=== PATIENT | female | born 1980 | race Caucasian/White ===

== ENCOUNTER 2016-07-14 22:39 | Emergency (ER) | payer BC ==
--- NOTE | 2016-07-15 02:38 | ED MAR SUMMARY ---
..... Medication Administration Record [facility] [address] [place], [place] [id number] Patient: TWILA HOLMAN Jerrica Visit ID: [id number] 36y, F Weight: 68.0 kg Height/Length: 65 in BMI: 25 ALLERGIES: None
--- NOTE | 2016-07-15 02:38 | ED NURSING NOTES ---
Clinical Report - Nurses [facility] [place] [address] 07/14/2016 22:39 Patient: TWILA HOLMAN TRIAGE Triage time 23:11. Acuity: LEVEL 4. Chief Complaint: (fills that something forgin object moving around in her arm). 23:15. --23:15 Jeanette Shafer R.N. 23:07 07/14/16. BP: 115/83 taken on the left arm, via an automated monitor, while sitting. HR: 95 (regular, normal rate and strong). RR: 20 (regular, unlabored and normal). O2 saturation: 95% on room air. Temp: 97.5 F (oral). Pain level now: 07/04. --23:15 Jeanette Shafer R.N. Weight: 68 kg stated. Height/Length: 65 inches. BMI: 25. --23:10 Jeanette Shafer R.N. Medications None. --23:14 Jeanette Shafer R.N. Allergies None. --23:14 Jeanette Shafer R.N. History Arrived by private vehicle. Historian: patient. Unaccompanied. Onset. (2 months). PAST MEDICAL HX: Immunizations: up-to-date. SOCIAL HX: Current every day smoker, start date 1989. Occasional alcohol use. No drug use. FALL RISK ASSESSMENT: Fall risk assessment completed. No fall risk identified. NUTRITIONAL RISK ASSESSMENT: The nutritional risk assessment revealed no deficiencies. FUNCTIONAL ASSESSMENT: Functional assessment: no impairments noted. LEARNING NEEDS ASSESSMENT: The learning needs assessment revealed no barriers. SKIN INTEGRITY ASSESSMENT: Skin integrity risk assessment completed. No skin integrity risk identified. --23:15 Jeanette Shafer R.N. DISPOSITION / DISCHARGE 00:30. The patient left the Emergency Department without being seen by a physician. She notified the ED staff prior to leaving the department and stated is leaving the ED due to personal reasons. Notified the charge nurse of patient departure. She left the Emergency Department ambulatory. --02:38 Ludy Will R.N. Locked/Released at 07/15/2016 2:38 by Ludy Will R.N.
--- NOTE | 2016-07-15 02:38 | ED NURSING NOTES ---
Clinical Report - Nurses [facility] [place] [address] [place] [address] 07/14/2016 22:39 Patient: TWILA HOLMAN TRIAGE Triage time 23:11. Acuity: LEVEL 4. Chief Complaint: (fills that something forgin object moving around in her arm). 23:15. --23:15 Jeanette Shafer R.N. 23:07 07/14/16. BP: 115/83 taken on the left arm, via an automated monitor, while sitting. HR: 95 (regular, normal rate and strong). RR: 20 (regular, unlabored and normal). O2 saturation: 95% on room air. Temp: 97.5 F (oral). Pain level now: 07/04. --23:15 Jeanette Shafer R.N. Weight: 68 kg stated. Height/Length: 65 inches. BMI: 25. --23:10 Jeanette Shafer R.N. Medications None. --23:14 Jeanette Shafer R.N. Allergies None. --23:14 Jeanette Shafer R.N. History Arrived by private vehicle. Historian: patient. Unaccompanied. Onset. (2 months). PAST MEDICAL HX: Immunizations: up-to-date. SOCIAL HX: Current every day smoker, start date 1989. Occasional alcohol use. No drug use. FALL RISK ASSESSMENT: Fall risk assessment completed. No fall risk identified. NUTRITIONAL RISK ASSESSMENT: The nutritional risk assessment revealed no deficiencies. FUNCTIONAL ASSESSMENT: Functional assessment: no impairments noted. LEARNING NEEDS ASSESSMENT: The learning needs assessment revealed no barriers. SKIN INTEGRITY ASSESSMENT: Skin integrity risk assessment completed. No skin integrity risk identified. --23:15 Jeanette Shafer R.N. DISPOSITION / DISCHARGE 00:30. The patient left the Emergency Department without being seen by a physician. She notified the ED staff prior to leaving the department and stated is leaving the ED due to personal reasons. Notified the charge nurse of patient departure. She left the Emergency Department ambulatory. --02:38 Ludy Will R.N. Locked/Released at 07/15/2016 2:38 by Ludy Will R.N.
--- NOTE | 2016-07-15 02:38 | ED MAR SUMMARY ---
..... Medication Administration Record [facility] [address] [place], [place] [id number] Patient: TWILA HOLMAN Jerrica Visit ID: [id number] 36y, F Weight: 68.0 kg Height/Length: 65 in BMI: 25 ALLERGIES: None
--- NOTE | 2016-07-15 02:39 | ED MED RECONCILIATION SUMMARY ---
Patient: TWILA HOLMAN Medication Reconciliation Report [facility] VisitID: [id number] [address] [place] [address] 36y, F Registration Date/Time: 07/14/2016 Weight: 68.0 kg Height/Length: 65 in. BMI: 25.0 ALLERGIES: None The patient's Home Medications are listed below: NONE. The source(s) of the original Home Medication information: Not obtained. The following Medications were given to the patient in the Emergency Department: None. The following Medications were prescribed to the patient: None.
--- NOTE | 2016-07-15 02:39 | ED MED RECONCILIATION SUMMARY ---
Patient: TWILA HOLMAN Medication Reconciliation Report [facility] VisitID: [id number] [address] [place] [address] 36y, F Registration Date/Time: 07/14/2016 Weight: 68.0 kg Height/Length: 65 in. BMI: 25.0 ALLERGIES: None The patient's Home Medications are listed below: NONE. The source(s) of the original Home Medication information: Not obtained. The following Medications were given to the patient in the Emergency Department: None. The following Medications were prescribed to the patient: None.
== END 2016-07-15 00:30 | disposition left against medical advice (07) ==
LOC: ED SRH 22:39
DX: Z53.21 Procedure and treatment not carried out due to patient leaving prior to being seen by health care provider (principal)